=== PATIENT | male | born 1950 | race Caucasian/White ===

== ENCOUNTER 2020-10-21 11:58 | Emergency (ER) | payer MEDICARE, OTHER ==
[~2020-10-21] VITALS: Ht 170.2 cm; Wt 88.9 kg
[2020-10-21 12:01] VITALS: BP 164/71
--- NOTE | 2020-10-21 12:15 | NUR ---
69/M presents to ED with with c/o dizziness and generalized weakness for 3 days. Patient states he began feeling weak and dizzy with one sided numbness 3 days ago, states he went to see his doctor earlier in the week and was only sent home with vitamins. Patient denies taking any medication at home, patient ambulates with assistance. Alert and oriented x4, able to answer all questions appropriately.
[2020-10-21 12:58] LABS: BASOPHILS % (AUTO) 0.5 % (0.0-2.0); EOSINOPHILS # (AUTO) 0.1 K/uL (0-0.4); EOSINOPHILS % (AUTO) 1.4 % (0.0-4.0); HEMATOCRIT 45.4 % (36-52); HEMOGLOBIN 15.6 g/dL (12.0-18.0); LYMPHOCYTES # (AUTO) 1.8 K/uL (2.0-11.5); LYMPHOCYTES % (AUTO) 22.7 % (20.5-51.1); MEAN CORPUSCULAR HEMOGLOBIN 30 pg (27-31); MEAN CORPUSCULAR HGB CONC 34 g/dL (33-37); MEAN CORPUSCULAR VOLUME 88.1 fL (80-94); MONOCYTES # (AUTO) 0.7 K/uL (0.8-1.0); MONOCYTES % (AUTO) 9.5 % (1.7-9.3); NEUTROPHILS # (AUTO) 5.1 K/uL (1.8-7.7); NEUTROPHILS % (AUTO) 65.9 % (42.2-75.2); PLATELET COUNT (AUTO) 306 K/uL (140-450); RED BLOOD CELL COUNT(AUTO) 5.15 MIL/uL (4.20-6.10); RED CELL DISTRIBUTION WIDTH 13.9 % (11.6-13.7); WHITE BLOOD COUNT (AUTO) 7.8 K/uL (4.8-10.8)
[2020-10-21 13:00] LABS: APPEARANCE,URINE CLEAR (CLEAR); BILIRUBIN,URINE NEGATIVE (NEGATIVE); BLOOD, URINE NEGATIVE (NEGATIVE); COLOR,URINE YELLOW (YELLOW); LEUKOCYTE ESTERASE ,URINE NEGATIVE (NEGATIVE); NITRITE, URINE NEGATIVE (NEGATIVE); UGLUCOSE NEGATIVE (NEGATIVE)
[2020-10-21 13:12] LABS: ALBUMIN 4.2 g/dL (3.4-5.0); ANION GAP 12.8 (8-16); CARBON DIOXIDE 29.5 mmol/L (21-32); CREATININE 0.8 mg/dL (0.6-1.3); POTASSIUM 4.3 mmol/L (3.5-5.1); TOTAL BILIRUBIN 0.9 mg/dL (0.0-1.0)
--- NOTE | 2020-10-21 13:16 | NUR ---
Patient returned from CT scan.
[2020-10-21] MEDS ORDERED: levETIRAcetam 100 MG/ML ORASYR ONE (13:47)
[2020-10-21] MEDS ORDERED: levETIRAcetam 100 MG/ML VIAL IV ONE (13:48)
[2020-10-21] MEDS: DEXAMETHASONE 10 MG/ML VIAL IVP ONE (13:55)
[2020-10-21] MEDS: levETIRAcetam 1,000 MG in NACL 0.9% 100 ML IV ONE (14:01)
--- NOTE | 2020-10-21 14:15 | NUR ---
Per Dr. Leung, patient ok to eat, provided with sandwich and juice at this time.
--- NOTE | 2020-10-21 14:35 | NUR ---
Dionne swab collected and walked down to lab.
--- NOTE | 2020-10-21 15:21 | NUR ---
Patient to be transferred to [facility]. Is being transferred due to higher level of care. Receiving facility has accepting physician and available space. ER physician has signed transfer form. Patient or responsible constitution party has agreed to transfer and signed form. Patient belongings inventoried and will be sent with patient. Copy of nursing notes, lab reports, EKG, Physicians Orders and X-rays to be sent with patient. Report called to Lisa at receiving facility. [facility] ambulance service has been called for transfer. ETA is 15:45.
[2020-10-21 15:34] LABS: PROTHROMBIN TIME 10.6 secs (10.8-13.4)
--- NOTE | 2020-10-21 16:10 | NUR ---
REPORT GIVEN TO [facility], PATIENT PLACED ON THEIR GURNEY AND TAKEN TO [facility]
[2020-10-21 16:13] VITALS: BP 118/45
== END 2020-10-21 16:13 | disposition short-term general hospital (02) ==
LOC: MED 11:58
DX: G93.0 Cerebral cysts (principal); Z20.822 Contact with and (suspected) exposure to COVID-19; G93.6 Cerebral edema; I10 Essential (primary) hypertension
CPT/HCPCS: 36415; 70450; 71045; 80053; 81003; 84484; 85025; 85610; 85730; 87426; 93005; 96365; 96375; 99285; J1100; J1953